=== PATIENT | female | born 1980 | race African-American/Black ===

== ENCOUNTER 2016-09-02 13:02 | Emergency (ER) | payer OTHER ==
[~2016-09-02] VITALS: Ht 144.8 cm; Wt 68.0 kg
[~2016-09-02 13:02] MED LIST: AMOXICILLIN500 M3 PO; DOCUSATE SODIU100 M3 PO; FLEXERIL10 MG PO; IBU800 MG PO; IBUPROFEN800 M1 PO; PERCOCET 5-3251 EACH PO
--- NOTE | 2016-09-02 13:55 | ED GI/GU/ABDOMINAL COMPLAINT ---
History of Present Illness General Chief Complaint: Nausea, Vomiting, Diarrhea Stated Complaint: ABD PAIN NVD Source: patient Exam Limitations: no limitations Vital Signs & Intake/Output Vital Signs & Intake/Output Vital Signs Date Time Temp Pulse Resp B/P Pulse O2 O2 Flow FiO2 Ox Delivery Rate 09/02 1526 97.6 77 16 112/59 98 Room Air 09/02 1311 97.9 80 20 106/66 99 Room Air Allergies Coded Allergies: NO KNOWN ALLERGIES (11/18/15) Reconcile Medications CYCLOBENZAPRINE HCL (Flexeril) 10 MG TAB 1 TAB PO TID PRN MUSCLE SPASMS Avoid operating motor vehicle or heavy machinery Docusate Sodium 100 MG CAPSULE 100 MG PO BID CONSTIPATION Ibuprofen 800 MG TABLET 800 MG PO Q6P PRN PAIN Ondansetron (Zofran Odt) 4 MG TAB.RAPDIS 1 TAB SL TID PRN NAUSEA Oxycodone HCl/Acetaminophen (Percocet 5-325 MG Tablet) 1 EACH TABLET 1 TAB PO Q4P PRN PAIN Triage Note: PT C/O ABDOMINAL PAIN WITH N/V/D SINCE 0600. PT STATES WATERY DIARRHEA WITHOUT BLOOD. Triage Nurses Notes Reviewed? yes ? N Is pt currently ? No HPI: Sudden onset of epigastric abdominal pain and is severe at started this morning. Vomited twice, multiple episodes of diarrhea, she believes she may have food poisoning or viralenteritis. 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 She had mild chills but no documented fever. No pain radiating into the back or shoulders. No blood in the vomit or diarrhea. Epigastric pain is sharp. Past History Travel History Traveled to [place] past 21 day No Medical History Any Pertinent Medical History? 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 No Review of Systems Review of Systems Constitutional: Reports: see HPI. EENTM: Reports: no symptoms. Respiratory: Reports: no symptoms. Cardiovascular: Reports: no symptoms. GI: Reports: see HPI. Genitourinary: Reports: no symptoms. Musculoskeletal: Reports: no symptoms. Skin: Reports: no symptoms. Neurological/Psychological: Reports: no symptoms. Hematologic/Endocrine: Reports: no symptoms. Immunologic/Allergic: Reports: no symptoms. All Other Systems: Reviewed and Negative Physical Exam Physical Exam Respiratory: normal breath sounds, chest non-tender, no respiratory distress Cardiovascular: regular rate/rhythm Gastrointestinal: normal bowel sounds, soft, tENDERNESS IN THE EPIGASTRIUM. nEGATIVE [place] SIGN. nO LOWER ABDOMINAL TENDERNESS, NO mCbURNEY'S POINT TENDERNESS Comments: Well-developed well-nourished. Appears moderately uncomfortable holding her mid epigastric region HEENT: Atraumatic, extraocular motion intact Neck: Supple, no lymphadenopathy Back: Nontender Respiratory: No respiratory distress Extremities: No edema, full range of motion Neuro: Alert and oriented x3 Psych: Mood affect normal, normal memory normal judgment. Skin: Warm and dry, no rash on exposed skin Core Measures ACS in differential dx? No Severe Sepsis Present: No Septic Shock Present: No Progress Differential Diagnosis: AAA, AMI, appendicitis, biliary colic, bowel obstruction , colon cancer, cholecystitis, diverticulitis, ectopic , endometritis, esophageal varices, gastritis, hepatitis, hernia, hemorrhoids, ischemic bowel, inflamm bowel dis, intrauterine , kidney stone, Dana-Chiqui tear, ovarian cyst, ovarian torsion, pancreatitis, PID/cervicitis, peptic ulcer, PUD/ GERD, perforated viscous, SBO, threatened AB, UTI/pyelo Plan of Care: Orders Procedure Date/time Status LIPASE 09/02 1346 Complete COMPREHENSIVE METABOLIC PANEL 09/02 1346 Complete CBC WITHOUT DIFFERENTIAL 09/02 1346 Complete AMYLASE 09/02 1346 Complete URINALYSIS 09/02 1330 Complete Laboratory Tests 09/02/16 1435: Anion Gap 9, Estimated GFR > 60, BUN/Creatinine Ratio 16.7, Glucose 97, Calcium 8.7, Total Bilirubin 0.5, AST 20, ALT 31, Alkaline Phosphatase 62, Total Protein 6.9, Albumin 4.0, Globulin 2.9, Albumin/Globulin Ratio 1.4, Amylase 36, Lipase 35 09/02/16 1406: CBC w Diff NO MAN DIFF REQ, RBC 5.38, MCV 81.7, MCH 27.6, RDW 14.2, MPV 11.8 H, Gran % 87.5 H, Lymphocytes % 8.7 L, Monocytes % 3.5, Eosinophils % 0.1, Basophils % 0.2, Absolute Granulocytes 5.5, Absolute Lymphocytes 0.5 L, Absolute Monocytes 0.2, Absolute Eosinophils 0, Absolute Basophils 0, PUBS MCHC 33.8, Urinalysis PACKD H, Urine Color YEL, Urine Clarity CLDY H, Urine pH 6.0, Ur Specific [place] 1.025, Urine Protein TRACE H, Urine Ketones NEG, Urine Nitrite NEG, Urine Bilirubin NEG, Urine Urobilinogen 0.2, Ur Leukocyte Esterase NEG, Ur Microscopic SEDIMENT EXAMINED, Urine RBC 1-3, Urine WBC RARE, Urine Hemoglobin SMALL H, Urine Glucose NEG Initial ED EKG: none Comments: IV fluids, IV Toradol 30 mg IV Zofran given. Upon reevaluation patient is feeling much better. Pain has resolved, no more nausea. She is hungry. Labs are unremarkable except for mild left shift. Her symptoms are sudden onset, nausea vomiting and diarrhea Which is consistent with gastroenteritis, do not feel as though she requires any imaging or further workup at this time. She will return with any worsening concerns. Departure Departure Disposition: HOME OR SELF CARE Condition: Stable Clinical Impression Primary Impression: Gastroenteritis Secondary Impressions: Nausea & vomiting Qualifiers: Vomiting type: unspecified Vomiting Intractability: non-intractable Qualified Code: R11.2 - Nausea with vomiting, unspecified Referrals: PATIENT HAS NO PRIMARY CARE DR (PCP/Family) Additional Instructions: Clear liquids for the next 12-24 hours. Take Zofran as needed for nausea. Return with worsening abdominal pain nausea vomiting or fever Departure Forms: Customer Survey General Discharge Information Prescriptions: Current Visit Scripts Ondansetron (Zofran Odt) 1 TAB SL TID PRN NAUSEA #10 TAB
[2016-09-02 14:13] LABS: ABSOLUTE BASOPHIL COUNT 0 /CUMM (0.0-0.2); ABSOLUTE EOSINOPHIL COUNT 0 /CUMM (0.0-0.7); ABSOLUTE GRANULOCYTE CT 5.5 /CUMM (1.4-6.5); ABSOLUTE LYMPH COUNT 0.5 /CUMM (1.2-3.4); ABSOLUTE MONOCYTE COUNT 0.2 /CUMM (0.10-0.60); BASOPHIL % 0.2 % (0.0-2.0); EOSINOPHIL % 0.1 % (0-5); MEAN CORPUSCULAR HGB 27.6 PG (27.0-31.0); MEAN CORPUSCULAR HGB CONC 33.8 G/DL (33.0-37.0); MEAN CORPUSCULAR VOLUME 81.7 FL (81.0-99.0); MEAN PLATELET VOLUME 11.8 FL (7.4-10.4); RBC DISTRIBUTION WIDTH 14.2 % (11.5-14.5); RED BLOOD CELL CT 5.38 /CUMM (4.20-5.40); WHITE BLOOD CELL COUNT 6.3 /CUMM (4.8-10.8)
[2016-09-02 14:26] LABS: GRANULOCYTE % 87.5 % (42.2-75.2); PLATELET COUNT 131 /CUMM (130-400)
[2016-09-02 15:26] VITALS: BP 112/59
[2016-09-02] MEDS ORDERED: ZOFRAN ODT4 M1 SL (15:40)
== END 2016-09-02 15:48 ==
LOC: ERH 13:02
PROVIDERS: Physician Assistant Surgical
DX: K52.9 Noninfective gastroenteritis and colitis, unspecified (principal)
CPT/HCPCS: 81001; 81025; 96374; 96375; J1885; J2405